=== PATIENT | male | born 1965 | race Caucasian/White ===

== ENCOUNTER 2018-07-05 23:55 | Emergency (ER) | payer BC ==
[2018-07-06] MEDS ORDERED: Tamsulosin 0.4 MG Cap.ER PO ONE (00:17)
[2018-07-06] MEDS ORDERED: Ketorolac 30 MG/ML SDV IVPUSH STA (00:17)
[2018-07-06] MEDS ORDERED: Orphenadrine 100 MG Tab.ER PO STA (00:17)
--- NOTE | 2018-07-06 00:19 | EDM.PDOC ---
ED HPI GENERAL MEDICAL PROBLEM - General Chief Complaint: Flank Pain Stated Complaint: RIGHT FLANK PAIN Time Seen by Provider: 07/06/18 00:06 Source of Information: Reports: Patient History Limitations: Reports: No Limitations - History of Present Illness INITIAL COMMENTS - FREE TEXT/NARRATIVE: The patient states that he developed right flank pain about a week ago. It is sharp and crampy in character. Initially it would come and go, more recently it has been waxing and waning. The patient has not identified any modifiers. No urinary symptoms. No gross hematuria. No recent fever. No associated nausea, vomiting, constipation, or diarrhea. No prior similar symptoms. The patient states that he has not taken any [id number] medicines to try to treat his symptoms. The patient states that he drove himself to the ED, and that he cannot get a ride home. The patient's PCP is at the [facility]. Right Flank Pain Score (Numeric/FACES): 9 - Related Data Allergies Allergy/AdvReac Type Severity Reaction Status Date / Time No Known Allergies Allergy Verified 07/06/18 00:02 Home Meds: Home Meds Orphenadrine [Norflex] 1 tab PO Q12H PRN #14 tab.er 07/06/18 [Rx] Past Medical History HEENT History: Reports: Impaired Vision Other HEENT History: Wears glasses Endocrine/Metabolic History: Reports: Obesity/BMI 30+ - Past Surgical History HEENT Surgical History: Reports: Oral Surgery (wisdom teeth extraction) Social & Family History - Tobacco Use Smoking Status *Q: Never Smoker - Alcohol Use Alcohol Use History: Yes Days Per Week of Alcohol Use: 7 Number of Drinks Per Day: 1 Total Drinks Per Week: 7 Alcohol Use Frequency: Socially - Recreational Drug Use Recreational Drug Use: No - Living Situation & Occupation Living situation: Reports: , with Spouse, with Family (1 daughter) Occupation: Employed ([employer]) ED ROS GENERAL - Review of Systems Review Of Systems: ROS reveals no pertinent complaints other than HPI. ED EXAM, GENERAL - Physical Exam Exam: See Below Exam Limited By: No Limitations General Appearance: Alert, WD/WN, Mild Distress (Appears uncomfortable) Eye Exam: Bilateral Eye: EOMI, Normal Inspection Ears: Normal External Exam, Hearing Grossly Normal Nose: Normal Inspection, No Blood Throat/Mouth: Normal Inspection, Normal Lips, Normal Voice, No Airway Compromise Head: Atraumatic, Normocephalic Neck: Normal Inspection, Full Range of Motion Respiratory/Chest: No Respiratory Distress, Lungs Clear, Normal Breath Sounds, No Accessory Muscle Use Cardiovascular: Normal Peripheral Pulses, Regular Rate, Rhythm, No Gallop, No JVD, No Murmur, No Rub Peripheral Pulses: 4+: Radial (L), Radial (R) GI/Abdominal: Normal Bowel Sounds, Soft, Non-Tender, No Organomegaly, No Distention, No Abnormal Bruit, No Mass, Other (Obese) (Male) Exam: Deferred Rectal (Males) Exam: Deferred Back Exam: Normal Inspection, Full Range of Motion. No: CVA Tenderness (L), CVA Tenderness (R) Extremities: Normal Inspection, Normal Range of Motion, Normal Capillary Refill , Other (1-2+ pretibial pitting edema, bilaterally) Neurological: Alert, Oriented, Normal Cognition, No Motor/Sensory Deficits Psychiatric: Normal Affect Skin Exam: Warm, Dry, Intact, Normal Color, No Rash Course - Vital Signs Last Recorded V/S: Last Vital Signs Temp 36.9 C 07/06/18 00:02 Pulse 81 07/06/18 00:02 Resp 18 07/06/18 00:02 BP 150/101 H 07/06/18 00:02 Pulse Ox 97 07/06/18 00:02 - Orders/Labs/Meds Orders: Active Orders 24 hr Category Date Time Status Abdomen Pelvis wo Cont [CT] Stat Exams 07/06/18 00:17 Taken UA W/MICROSCOPIC [URIN] Stat Lab 07/06/18 01:57 Ordered Sodium Chloride 0.9% [Normal Saline] 1,000 ml Med 07/06/18 00:30 Active IV ASDIRECTED Medication Orders Sodium Chloride (Normal Saline) 1,000 mls @ 150 mls/hr IV ASDIRECTED KERRI Last Admin: 07/06/18 00:27 Dose: 150 mls/hr Labs: Laboratory Tests 07/06/18 Range/Units 01:57 Urine Color Yellow (Yellow) Urine Appearance Slt cloudy H (Clear) Urine pH 6.0 (5.0-8.0) Ur Specific Waldron > or = 1.030 (1.005-1.030) Urine Protein Trace H (Negative) Urine Glucose (UA) Negative (Negative) Urine Ketones Negative (Negative) Urine Occult Blood 2+ H (Negative) Urine Nitrite Negative (Negative) Urine Bilirubin Negative (Negative) Urine Urobilinogen 0.2 (0.2-1.0) Ur Leukocyte Esterase Negative (Negative) Urine RBC 0-5 (0-5) /hpf Urine WBC 0-5 (0-5) /hpf Ur Epithelial Cells 0-5 (0-5) /hpf Urine Bacteria Few (FEW) /hpf Urine Mucus Many H (FEW) /hpf Meds: Medications Generic Name Dose Route Start Last Admin Trade Name Freq PRN Reason Stop Dose Admin Sodium Chloride 1,000 mls @ 150 mls/hr 07/06/18 00:30 07/06/18 00:27 Normal Saline IV 150 mls/hr ASDIRECTED KERRI Administration Discontinued Medications Generic Name Dose Route Start Last Admin Trade Name Freilir PRN Reason Stop Dose Admin Ketorolac Tromethamine 30 mg 07/06/18 00:17 07/06/18 00:26 Toradol IVPUSH 07/06/18 00:18 30 mg ONETIME STA Administration Orphenadrine Citrate 100 mg 07/06/18 00:17 07/06/18 00:25 Norflex PO 07/06/18 00:18 100 mg ONETIME STA Administration Tamsulosin HCl 0.4 mg 07/06/18 00:17 07/06/18 00:25 Flomax PO 07/06/18 00:18 0.4 mg ONETIME ONE Administration - Re-Assessments/Exams Free Text/Narrative Re-Assessment/Exam: 07/06/18 00:18 The patient has had right flank pain for the past week, but no urinary symptoms , no nausea or emesis. I have ordered a urinalysis and a CT scan of the abdomen and pelvis without contrast, to evaluate. The patient states that he drove himself here, and cannot get a ride home, therefore I have ordered non-narcotic analgesia including Toradol, Flomax, Norflex, and IV fluid. 07/06/18 01:38 CT of the abdomen and pelvis without contrast is read by [facility] as: 1. Possible ill-defined 7.8 cm low-attenuation mass within segments 7/8 of the liver, difficult to characterize on this noncontrasted study. 2. No nephrolithiasis. No obstructing renal or ureteral stone. No hydronephrosis. 3. No CT findings of acute appendicitis. 4. Colonic diverticulosis without CT findings of acute diverticulitis. 5. Incomplete urinary bladder distention with prominent wall. Correlation with urinalysis for cystitis. 07/06/18 02:27 Test results discussed with the patient. The patient's urinalysis is unremarkable. He does not have a UTI. I'm recommending that the patient follow- up with his PCP at the [facility] to evaluate his liver, given the abnormality on the CT scan. I cannot explain the patient's back pain, other than it might be a muscle spasm. I will discharge the patient home with a prescription for Norflex. Departure - Departure Time of Disposition: 02:28 Disposition: Home, Self-Care 01 Condition: Good Clinical Impression: Back pain - Discharge Information *PRESCRIPTION DRUG MONITORING PROGRAM REVIEWED*: Not Applicable *COPY OF PRESCRIPTION DRUG MONITORING REPORT IN PATIENT BERNIE: Not Applicable Referrals: PCP,Not In Area [Primary Care Provider] - Forms: ED Department Discharge Additional Instructions: You were seen in the emergency room for right flank pain for the past week. Workup in the ER included a urinalysis and a CT scan of your abdomen and pelvis. You do not have a urinary tract infection. The CT scan showed that you do not have a kidney stone. The cause of your right flank pain is unclear, but might be due to a muscle spasm. You have been started on the muscle relaxant Norflex. A prescription for Norflex has been sent to the [facility], located in the [facility] grocery store. Take one tablet every 12 hours, starting this morning, , 07/06/2018, as prescribed. We also recommend that you take [id number] ibuprofen, 2-3 tablets (400- 600 mg) every 8 hours, with food, as needed for discomfort. The CT scan found a POSSIBLE abnormality in your liver. This needs further evaluation. Please follow-up with your primary care physician at the [facility]. If any other problems, please do not hesitate to return to the ER. - My Orders Last 24 Hours: My Active Orders 07/06/18 00:17 Abdomen Pelvis wo Cont [CT] Stat 07/06/18 00:30 Sodium Chloride 0.9% [Normal Saline] 1,000 ml IV ASDIRECTED 07/06/18 01:57 UA W/MICROSCOPIC [URIN] Stat - Assessment/Plan Last 24 Hours: My Active Orders 07/06/18 00:17 Abdomen Pelvis wo Cont [CT] Stat 07/06/18 00:30 Sodium Chloride 0.9% [Normal Saline] 1,000 ml IV ASDIRECTED 07/06/18 01:57 UA W/MICROSCOPIC [URIN] Stat
[2018-07-06] MEDS ORDERED: Sodium Chloride 0.9% 1,000 ML IV SCH (00:30)
--- NOTE | 2018-07-10 07:30 | CT ---
CT abdomen and pelvis Technique: Multiple axial sections were obtained from above the dome of the diaphragm inferiorly through the pubic symphysis. Intravenous and oral contrast was not utilized. Study has been performed as a ureteral stone exam. Comparison: No prior CT abdomen or pelvis exam. Findings: Kidneys show no abnormal calcifications. No ureteral dilatation or ureteral stone is seen. Visualized lung bases show nothing acute. Irregular attenuation noted of the liver. Findings most likely represent fatty infiltration although contrast study could be performed to confirm if the patient's creatinine is normal. Spleen appears within normal limits. Adrenal glands show no nodule. Gallbladder contains no calcified gallstones. Pancreas appears within normal limits. Aorta shows no aneurysmal dilatation. No retroperitoneal adenopathy or mesenteric abnormalities are seen. Fat-containing umbilical hernia is noted. Appendix is seen which is normal in size. No pelvic mass or adenopathy is seen. Bladder wall is mildly thickened most likely representing lack of distention. No inflammatory change or free fluid is seen. Bone window settings were reviewed which shows mild scattered degenerative change within the spine. Impression: 1. Irregular attenuation of the liver most likely representing irregular fatty infiltration. Contrast-enhanced study could be obtained to rule out liver mass if patient's creatinine is normal. 2. Other incidental findings as noted above. No ureteral stone is seen. Diagnostic code #9 I agree with preliminary report from [facility], finalized at 07/06/18, 2:29 AM Central Time
== END 2018-07-06 02:40 | disposition home or self-care (01) ==
LOC: JD.ED 23:55
DX: M54.9 Dorsalgia, unspecified (principal); R10.9 Unspecified abdominal pain
CPT/HCPCS: 74176; 81001; 96361; 96374; 99284; A9270; J1885; J7040